=== PATIENT | female | born 1980 | race Caucasian/White ===

== ENCOUNTER 2018-10-10 21:51 | Emergency (ER) | payer MEDICAID, OTHER ==
--- NOTE | 2018-10-11 00:15 | ED Physician Chart ---
ED Chief Complaint/HPI - Patient Information Date Seen:: 08/09/19 Time Seen:: 22:00 Allergies:: Allergies Allergy/AdvReac Type Severity Reaction Status Date / Time No Known Allergies Allergy Verified 10/10/18 22:04 Vitals:: Vital Signs - 8 hr 10/10/18 22:05 Temp 98.3 F HR 90 RR 20 BP 114/79 O2 Sat % 100 ED Review of Systems - Review of Systems General/Constitutional: No fever Skin: No skin lesions Head: No headache Eyes: No loss of vision ENT: No earache Neck: No neck pain Cardio Vascular: No chest pain Pulmonary: No SOB GI: No vomiting G/U: No dysuria Baggage Porter: No abnormal vaginal bleed Musculoskeletal: No bone or joint pain Endocrine: No polyuria Psychiatric: Prior psych history Hematopoietic: No bruising Allergic/Immuno: No urticaria Neurological: No vertigo ED Past Medical History - Past Medical History Past Medical History: Other (depression) Family Medical History - Family Member Mother History Unknown: Yes ED Physical Exam - Physical Examination General/Constitutional: Well-developed, well-nourished, Alert, No distress, GCS 15, Non-toxic appearing Head: Atraumatic Eyes: Lids, conjuctiva normal Other Skin comments:: slight acne face ENMT: External ears, nose nl Neck: Nontender Respiratory: Nl effort/Exclusion Cardio Vascular: RRR GI: Normal BS's : No CVA tenderness Extremities: No tenderness or effusion Neuro/Psych: Alert/oriented, Normal sensory exam, Normal motor strength Misc: Normal back ED Labs/Radiology/EKG Results - Lab Results Results: Laboratory Tests 10/10/18 22:45 Beta HCG, Quant [id number] H* ED Assessment - Assessment General Assessment: no contractions or bleeding ED Septic Shock - . Is Septic Shock (SBP<90, OR Lactate>4 mmol\L) present?: No - <6hrs of presentation: Vital Signs: Vital Signs - 8 hr 10/10/18 22:05 Temp 98.3 F HR 90 RR 20 BP 114/79 O2 Sat % 100 ED Reassessment (Disposition) - Reassessment Reassessment:: previous child not effected by mother taking prozac discussion at length mother opts to continue prozac at dose of 40 rx written also given pre as well folate and iron Reassessment Condition:: Unchanged (take preg vits folate preg er pain bleeding) - Patient Disposition Discharge/Transfer:: Home
== END 2018-10-11 00:25 | disposition home or self-care (01) ==
LOC: ER 21:51
DX: F32.9 Major depressive disorder, single episode, unspecified (principal); Z76.0 Encounter for issue of repeat prescription
CPT/HCPCS: 36415-UA; 84702-TC; Z7502